=== PATIENT | male | born 1950 | race Caucasian/White ===

== ENCOUNTER → 2016-04-21 | Outpatient (CLI) | payer MEDICARE, BC, OTHER ==
[~2016-04-21] MED LIST: ACETAMINOPHEN PO; ACETAMINOPHEN325 MG PO; ALBUTEROL 0.5ML INH; ALBUTEROL20 ml INH; AMLODIPINE BESYL5 MG PO; ANTI ANXIETY; ATENOLOL50 MG PO; CALCIUM ACETAT667 M1 PO; CARDURA2 MG PO; CARVEDILOL PO; COREG3.125 MG PO; CYCLOBENZAPRINE5 MG PO; FENOFIBRATE134 MG PO; FLEXERIL10 MG; HYDROXYZINE PAM25 M1 PO; IRON325 ( 651 PO; LEVAQUIN PO; LO-DOSE ASPIRIN81 M1 PO; LORTAB 5-325 M1 EACH PO; LORTAB 5/500 TA1 TA1 PO; LOSARTAN POTASS50 MG PO; LOW DOSE ASPIRI81 M1 PO; MAPAP325 MG PO; METOPROLOL PO; NILSTAT PO; NORVASC10 MG PO; OMEPRAZOLE PO; ONDANSETRON HCL4 M1 PO; OXYCODONE-APAP1 EACH PO; PHENERGAN25 M1 PO; PRILOSEC2.5 MG; PRILOSEC20 M1 PO; PROTONIX; PROVENTIL INH0.5 ML INH; RENAL TAB PO; RENAL VITAMIN0.8 MG PO; SERTRALINE HCL50 MG PO; SODIUM BICARBO650 MG PO; STOOL SOFTNER; VICODIN 5-3001 EACH; VISTARIL; ZEMPLAR1 MCG PO; ZOLOFT; ZOLOFT50 MG PO; ZYLOPRIM100 MG PO
--- NOTE | ~2016-04-21 | XA203 ---
[facility] Service of [facility] RADIOLOGY TEXT RESULTS PATIENT: DARIEN AHUJA LOCATION: [facility] #: [id number] : 54 UNIT #: [id number] AGE: [address]: Ania Johnson SEX: M ORDER DR: [id number] [facility] [address] [place], [place] [address] [id number] O MR#: [id number] [facility] #: [id number] NAME: DARIEN AHUJA : 1950 SEX: M STUDY DATE/TIME: 04/21/2016 13:24 UNIT: [facility] ROOM: STUDY DESCRIPTION: XA Thoracentesis Attending Physician: Ania Johnson A.P.R.N. Referring Physician: Ania Johnson A.P.R.N. Ordering Physician: Ania Johnson A.P.R.N. Primary Care Physician: Jostete Fletcher Aprn MEDICAL IMAGING REPORT This report is preliminary unless electronic signature is present EXAM Ultrasound-guided thoracentesis. DATE OF EXAM 04/21/2016 HISTORY Recurrent right pleural effusion. TECHNIQUE The procedure was explained to the patient including risks, benefits and complications. An informed consent was obtained and a formal time out procedure was utilized. Using sterile technique and following local anesthesia with 1% Xylocaine, a sheath needle was placed into the pleural fluid collection with ultrasound guidance. Permanent ultrasound images were recorded. Some of the fluid was sent for laboratory analysis as requested by the ordering service. A total of 2 L of fluid was aspirated. The patient tolerated the procedure well. The chest x-ray will be obtained following the thoracentesis to evaluate for pneumothorax with results reported separately. IMPRESSION Technically successful ultrasound-guided right thoracentesis with 2 L of fluid obtained. Dictated by... Cole Barillas M.D. THIS IS AN ELECTRONICALLY VERIFIED REPORT Cole Barillas M.D. at 04/22/2016 4:42 PM [facility] of [facility] RADIOLOGY TEXT RESULTS PATIENT: DARIEN AHUJA LOCATION: [facility] #: [id number] : 54 UNIT #: [id number] AGE: [address]: Ania Johnson SEX: M ORDER DR: Yoly TD: 04/21/2016 16:54 JOB #: [id number] MEDICAL IMAGING REPORT COPY
--- NOTE | ~2016-04-21 | CR71 ---
[facility] A Service of [facility] RADIOLOGY TEXT RESULTS PATIENT: DARIEN AHUJA LOCATION: [facility] : 54 UNIT #: [id number] AGE: [address]: Ania Johnson SEX: M ORDER DR: [id number] [facility] [address] [place], [place] [address] [id number] O MR#: [id number] Acc #: [id number] NAME: DARIEN AHUJA. : 1950 SEX: M STUDY DATE/TIME: 04/21/2016 13:09 UNIT: [facility] ROOM: STUDY DESCRIPTION: CR Chest Single View Attending Physician: Ania Johnson A.P.R.N. Referring Physician: Ania Johnson A.P.R.N. Ordering Physician: Cole Barillas M.D. Primary Care Physician: Josette Fletcher Aprn MEDICAL IMAGING REPORT This report is preliminary unless electronic signature is present EXAM AP chest HISTORY Post thoracentesis. TECHNIQUE A single AP view of the chest was obtained and compared with 07/07/2012. FINDINGS Cardiomegaly is again seen. There is a trace remaining pleural effusion on the right in the minor fissure. There is no evidence of pneumothorax. The left lung is clear. Vascular markings are normal. IMPRESSION Satisfactory chest following thoracentesis. Dictated by... Cole Barillas M.D. THIS IS AN ELECTRONICALLY VERIFIED REPORT Cole Barillas M.D. at 04/21/2016 4:31 PM DU/owen TD: 04/21/2016 13:56 JOB #: [id number] MEDICAL IMAGING REPORT COPY
[2016-04-21 14:27] LABS: BF TOTAL NUCLEATED CELL COUNT 103 CMM (0-100); BODY FLUID APPEARANCE CLEAR; BODY FLUID SOURCE PLEURAL
[2016-04-21 14:28] LABS: BODY FLUID RBC <10000 CMM
[2016-04-21 15:02] LABS: PROTEIN, BODY FLUID 2.2 gm/dL
== END | disposition home or self-care (01) ==
LOC: CIVR 12:09
PROVIDERS: Registered Nurse
PROC: 0W993ZZ Drainage of Right Pleural Cavity, Percutaneous Approach (ICD-10-PCS; principal; 2016-04-21)
DX: J90 Pleural effusion, not elsewhere classified (principal); R06.02 Shortness of breath; N18.5 Chronic kidney disease, stage 5; D63.1 Anemia in chronic kidney disease; Z79.899 Other long term (current) drug therapy; I13.2 Hypertensive heart and chronic kidney disease with heart failure and with stage 5 chronic kidney disease, or end stage renal disease; I50.9 Heart failure, unspecified; J44.9 Chronic obstructive pulmonary disease, unspecified; Z79.82 Long term (current) use of aspirin; Z79.891 Long term (current) use of opiate analgesic; Z82.49 Family history of ischemic heart disease and other diseases of the circulatory system; Z83.3 Family history of diabetes mellitus
CPT/HCPCS: 71010; 82150; 82945; 83615; 83986; 84157; 87070; 87205; 88108; 88305; 89051

== ENCOUNTER → 2016-06-04 | Outpatient (CLI) | payer MEDICARE, BC, OTHER ==
--- NOTE | ~2016-06-04 | CR71 ---
[facility] A Service of [facility] RADIOLOGY TEXT RESULTS PATIENT: DARIEN AHUJA [facility] : 54 UNIT #: [id number] AGE: [address]: Tootie Samayoa SEX: M ORDER DR: [id number] [facility] [address] [place], [place] [address] [id number] O MR#: [id number] Acc #: [id number] NAME: DARIEN AHUJA : 1950 SEX: M STUDY DATE/TIME: 06/04/2016 11:40 [facility] ROOM: STUDY DESCRIPTION: CR Chest Single View Attending Physician: Tootie Samayoa A.P.R.N. Referring Physician: Tootie Samayoa A.P.R.N. Ordering Physician: Sejal Russo M.D. Primary Care Physician: Josette Fletcher Aprn MEDICAL IMAGING REPORT This report is preliminary unless electronic signature is present EXAM Single view of the chest dated 06/04/2016 at 11:40 hours COMPARISON Single view chest dated 04/21/2016 at 13:09 hours. HISTORY Asthma, post thoracentesis today. History of pain and cough. FINDINGS Frontal view of the chest was obtained. There is mild obliteration of the right lateral CP angle suggestive of mild right sided pleural effusion. Associated mild right lung base atelectasis is probably present. No obvious pneumothorax on the right. Borderline size to mild cardiomegaly. Bones do not demonstrate any significant abnormality. Dictated by... Deena Abel M.D. THIS IS AN ELECTRONICALLY VERIFIED REPORT Deena Abel M.D. at 06/05/2016 2:57 PM CPR/rnr TD: 06/04/2016 12:37 JOB #: [id number] MEDICAL IMAGING REPORT Page 1 of 1 COPY
--- NOTE | ~2016-06-04 | XA203 ---
[facility] A Service of [facility] RADIOLOGY TEXT RESULTS PATIENT: DARIEN AHUJA LOCATION: [facility] : 54 UNIT #: [id number] AGE: [address]: Tootie Samayoa SEX: M ORDER DR: [id number] [facility] [address] [place], [place] [address] [id number] O MR#: [id number] Acc #: [id number] NAME: DARIEN AHUJA : 1950 SEX: M STUDY DATE/TIME: 06/04/2016 11:11 UNIT: [facility] ROOM: STUDY DESCRIPTION: XA Thoracentesis Attending Physician: Tootie Samayoa A.P.R.N. Referring Physician: Tootie Samayoa A.P.R.N. Ordering Physician: Tootie Samayoa A.P.R.N. Primary Care Physician: Josette Fletcher Aprn MEDICAL IMAGING REPORT This report is preliminary unless electronic signature is present EXAM Ultrasound-guided thoracentesis. INDICATIONS Right pleural effusion.. PROCEDURE The risk, benefits, and alternatives for the procedure were explained to the patient and signed, informed consent was obtained. Patient was seated in the upright position. Ultrasound of the right hemithorax was performed which demonstrated large right pleural effusion, this image was permanently saved. Overlying skin was marked, patient was prepped and draped usual sterile fashion. Time-out was performed as protocol. Skin and subcutaneous tissues were anesthetized with buffered lidocaine and Yueh catheter was advanced into the fluid with aspiration of serous material. Catheter was hooked to suction tubing and there was evacuation of a total 2 L of serous material. The catheter was then removed and manual pressure was applied until hemostasis was obtained. The patient tolerated the procedure well. There were no immediate complications. IMPRESSION Technically successful ultrasound-guided paracentesis with evacuation of 2 L of serous material. Ultrasound was used during the procedure. Permanent images were saved. Dictated by... Sejal Russo M.D. THIS IS AN ELECTRONICALLY VERIFIED REPORT Sejal Russo M.D. at 06/06/2016 2:05 PM AFF/dj TD: 06/05/2016 10:28 [facility] A Service of [facility] RADIOLOGY TEXT RESULTS PATIENT: DARIEN AHUJA LOCATION: [facility] : 54 UNIT #: [id number] AGE: [address]: Tootie Samayoa SEX: M ORDER DR: JAVIER #: [id number] MEDICAL IMAGING REPORT Page 1 of 1 COPY
[2016-06-04 10:46] LABS: HEMATOCRIT 32.3 % (38.0-50.0); HEMOGLOBIN 10.7 gm/dL (13.0-16.0); MEAN CELL VOLUME 99.2 FL (83-96); MEAN CORPUSCULAR HEMOGLOBIN 32.9 PG (28-34); MEAN CORPUSCULAR HGB CONC 33.2 g/dL (30-36); MEAN PLATELET VOLUME 7.9 FL (6.5-11.5); RED BLOOD COUNT 3.25 X10e (3.90-5.60); RED CELL DISTRIBUTION WIDTH 15.1 % (11.0-15.5); WHITE BLOOD COUNT 4.1 X10e3 (4.0-10.5)
[2016-06-04 11:02] LABS: INR 1.1; PARTIAL THROMBOPLASTIN TIME 28.5 SECONDS (23.5-31.3); PROTHROMBIN TIME (PATIENT) 11.9 SECONDS (9.6-11.5)
[2016-06-04 13:33] LABS: PROTEIN, BODY FLUID 2.6 gm/dL
[2016-06-04 19:45] LABS: BF TOTAL NUCLEATED CELL COUNT 127 CMM (0-100); BODY FLUID APPEARANCE CLEAR; BODY FLUID RBC <10000 CMM; BODY FLUID SOURCE PLEURAL
== END | disposition home or self-care (01) ==
LOC: CIVR 10:06
PROVIDERS: Nurse Practitioner Adult Health
DX: J90 Pleural effusion, not elsewhere classified (principal); I51.7 Cardiomegaly; I13.2 Hypertensive heart and chronic kidney disease with heart failure and with stage 5 chronic kidney disease, or end stage renal disease; I50.9 Heart failure, unspecified; N18.5 Chronic kidney disease, stage 5; Z99.2 Dependence on renal dialysis; D63.1 Anemia in chronic kidney disease; J44.9 Chronic obstructive pulmonary disease, unspecified; Z79.899 Other long term (current) drug therapy; Z79.82 Long term (current) use of aspirin; Z82.49 Family history of ischemic heart disease and other diseases of the circulatory system; Z83.3 Family history of diabetes mellitus
CPT/HCPCS: 36415; 71010; 82150; 82945; 82947; 83615; 83986; 84155; 84157; 85027; 85610; 85730; 87070; 87116; 87205; 87206; 88108; 88305; 89051

== ENCOUNTER → 2016-07-30 | Outpatient (CLI) | payer MEDICARE, BC, OTHER ==
--- NOTE | ~2016-07-30 | ST ---
Unit #: [id number] #: [id number] Patient: DARIEN AHUJA [id number] [address] [address] [id number] O MR#: [id number] NAME: DARIEN AHUJA : 1950 SEX: M STUDY DATE/TIME: 07/30/2016 UNIT: [facility] ROOM: STUDY DESCRIPTION: Cardiac stress test. Attending Physician: Juli Shen M.D. Referring Physician: Juli Shen M.D. Primary Care Physician: Josette Fletcher Aprn CARDIOLOGY REPORT EXAM Cardiac stress test. REASON FOR STUDY Preoperative clearance for lung surgery. PROCEDURE Baseline EKG shows sinus rhythm with IVC and T wave inversion in the inferolateral leads. A total of 0.4 mg of Lexiscan was injected per protocol, followed by Cardiolite. The patient's symptoms were nausea. There were no ST-T wave changes or arrhythmias. The test was stopped due to protocol completion. IMPRESSION 1. There were no ST-T wave changes during the test. 2. The patient had nausea that resolved in recovery. 3. No arrhythmias. 4. Please correlate with Cardiolite imaging. Dictated by... Ely Teixeira A.P.R.N. AM/jose f TD: 07/30/2016 10:31 JOB #: [id number] CARDIOLOGY REPORT Page 1 of 1 X Ely Teixeira APRN CARDIOLOGY REPORT
--- NOTE | ~2016-07-30 | TH ---
Unit #: [id number] #: [id number] Patient: DARIEN AHUJA [id number] [address] [address] [id number] O MR#: [id number] NAME: DARIEN AHUJA : 1950 SEX: M STUDY DATE/TIME: 07/30/2016 UNIT: [facility] ROOM: STUDY DESCRIPTION: Attending Physician: Juli Shen M.D. Referring Physician: Juli Shen M.D. Primary Care Physician: Josette Fletcher Aprn CARDIOLOGY REPORT EXAM Lexiscan Cardiolite stress test, nuclear portion. PROCEDURE Using technetium 99m labeled Cardiolite, rest and stress SPECT images were obtained. Multiple SPECT images were obtained in various views including horizontal and vertical long axis and short axis views of the left ventricle. Images were obtained by gated SPECT method. The patient was administered 11.33 mCi of Cardiolite at rest. The patient was administered 33.1 mCi of Cardiolite after Lexiscan infusion was completed. On the stress images, there is normal perfusion noted. The rest images show decreased isotope activity inferiorly consistent with soft tissue artifact. Comparing rest and stress images, there is no stress-induced ischemia noted. The left ventricular ejection fraction is calculated to be 38%. There is global hypokinesis seen. The left ventricular cavity is moderate to severely dilated both at rest and post stress. CONCLUSION 1. No stress-induced ischemia noted. 2. The left ventricular ejection fraction is calculated to be 38%. 3. There is moderate global hypokinesis seen. 4. The left ventricular cavity is sbbvpgcm-je-ndqnikcm dilated both at rest and post stress. 5. Suspicion for moderate nonischemic dilated cardiomyopathy. Dictated by... Marina Rubin TD: 07/30/2016 12:12 JOB #: [id number] Unit #: [id number] #: [id number] Patient: DARIEN AHUJA CARDIOLOGY REPORT Page 1 of 1 X Juli Shen MD <ELECTRONICALLY SIGNED> 09/12/16 1429 CARDIOLOGY REPORT
== END | disposition home or self-care (01) ==
LOC: CNUC 07:31
DX: Z01.810 Encounter for preprocedural cardiovascular examination (principal); I51.7 Cardiomegaly
CPT/HCPCS: 78452; 93017; A9500; J2785

== ENCOUNTER 2016-08-17 12:16 | Emergency (ER) | payer MEDICARE, OTHER, BC ==
--- NOTE | ~2016-08-17 | CT4 ---
[facility] A Service of [facility] RADIOLOGY TEXT RESULTS PATIENT: DARIEN AHUJA LOCATION: SED : 54 UNIT #: [id number] AGE: [address]: Helga To MD SEX: M ORDER DR: [id number] [address] [address] [id number] E MR#: [id number] Acc #: [id number] NAME: DARIEN AHUJA : 1950 SEX: M STUDY DATE/TIME: 08/17/2016 13:38 UNIT: [facility] ROOM: STUDY DESCRIPTION: CT Abd and Pelv Wo Cont Attending Physician: Helga To M.D. Ordering Physician: Helga To M.D. Primary Care Physician: Josette Fletcher Aprn MEDICAL IMAGING REPORT This report is preliminary unless electronic signature is present. EXAM CT abdomen and pelvis without contrast Date: 08/17/2016 HISTORY Right flank pain for 3 days, on dialysis. Dysuria. COMPARISON CT abdomen and pelvis without contrast 12/09/2015. TECHNIQUE This CT exam was performed with one or more of the following radiation dose reduction techniques: automatic exposure control, adjustment of mA and/or kV according to patient size, and iterative reconstruction. PROCEDURE 3 mm noncontrast axial images through the abdomen and pelvis. Enteric contrast was not administered. Sagittal and coronal reformed images were obtained. FINDINGS Moderate sized right basilar pleural effusion is demonstrated with probable passive right lower lobe atelectasis. There is a small pericardial effusion measuring about 8 mm thickness. Dense coronary calcifications are present, there is a moderate sized esophageal hiatal hernia. The liver, gallbladder, spleen, pancreas, adrenals are normal. There is severe bilateral renal atrophy and cortical thinning with tiny low-density lesions scattered throughout both kidneys which are technically too small to characterize, but statistically favored to represent cysts. A 7 mm [facility] A Service of [facility] RADIOLOGY TEXT RESULTS PATIENT: DARIEN AHUJA LOCATION: [facility] : 54 UNIT #: [id number] AGE: [address]: Helga To MD SEX: M ORDER DR: nonobstructing stone within the right lower renal pole is unchanged from prior exam. No ureteral stone, hydronephrosis or hydroureter or perinephric inflammation is seen. Limited evaluation bowel due to lack of enteric contrast but no focal bowel inflammation is identified. Pelvis: Mild sigmoid diverticulosis without acute diverticulitis. Urinary bladder, prostate and rectum are normal. No pelvic adenopathy or free fluid is seen. No acute osseous abnormalities are identified. IMPRESSION 1. No acute findings within the abdomen or pelvis 2. A 7 mm nonobstructing right renal stone. No ureteral calculus, hydronephrosis, hydroureter or perinephric inflammation is seen. 3. Marked bilateral renal atrophy with low density bilateral renal l lesions such as but favored to represent cysts. 4. Sparse uncomplicated colonic diverticulosis. 5. Moderate sized right pleural effusion, increased since the 12/09/2015 examination with probable passive right basilar atelectasis. 6. Small pericardial effusion. 7. Dense coronary artery calcifications. 8. Moderate esophageal hiatal hernia. Dictated by... Esha Hand M.D. THIS IS AN ELECTRONICALLY VERIFIED REPORT Esha Hand M.D. at 08/19/2016 2:17 PM CRISTIAN/amelie TD: 08/17/2016 21:23 JOB #: [id number] MEDICAL IMAGING REPORT Page 1 of 1
[~2016-08-17 12:16] MED LIST changes: -ACETAMINOPHEN325 MG PO; -ALBUTEROL 0.5ML INH; -ALBUTEROL20 ml INH; -AMLODIPINE BESYL5 MG PO; -COREG3.125 MG PO; -CYCLOBENZAPRINE5 MG PO; -FLEXERIL10 MG; -HYDROXYZINE PAM25 M1 PO; -LO-DOSE ASPIRIN81 M1 PO; -LORTAB 5-325 M1 EACH PO; -LOSARTAN POTASS50 MG PO; -MAPAP325 MG PO; -NILSTAT PO; -ONDANSETRON HCL4 M1 PO; -OXYCODONE-APAP1 EACH PO; -PROTONIX; -PROVENTIL INH0.5 ML INH; -RENAL VITAMIN0.8 MG PO; -SERTRALINE HCL50 MG PO; -VICODIN 5-3001 EACH; -VISTARIL; -ZOLOFT
[2016-08-17] MEDS ORDERED: FLEXERIL10 MG (12:23)
[2016-08-17] MEDS ORDERED: VICODIN 5-3001 EACH (12:23)
[2016-08-17] MEDS ORDERED: PROTONIX (12:26)
[2016-08-17] MEDS ORDERED: VISTARIL (12:26)
[2016-08-17] MEDS ORDERED: ZOLOFT (12:26)
[2016-08-17 12:56] LABS: URINE APPEARANCE HAZY; URINE BILIRUBIN NEG (NEG); URINE BLOOD 3+ (NEG); URINE COLOR YELLOW; URINE GLUCOSE NEG (NORM); URINE KETONE NEG (NEG); URINE LEUKOCYTE ESTERASE 2+ (NEG); URINE NITRATE NEG (NEG); URINE PH 7.5 (5-8); URINE PROTEIN 2+ (NEG); URINE UROBILINOGEN 0.2 MG/DL (NORM)
[2016-08-17 12:57] LABS: MICRO INDICATED? YES; URINE SOURCE CLEAN CATCH
[2016-08-17 13:02] LABS: CULTURE INDICATED? YES; URINE BACTERIA 1+ (NEG); URINE RBC 25-50 /[HPF] (0-2); URINE WBC 50-100 /[HPF] (0-5)
[2016-08-17 13:03] LABS: URINE GRANULAR CAST 0-2 /[HPF]; URINE HYALINE CAST 0-2 /[HPF]; URINE MUCUS PRESENT; URINE SQUAMOUS EPITHELIAL CELL OCCAS /[HPF]
[2016-08-17 13:48] LABS: BASOPHIL% 1.2 % (0-2.5); EOSINOPHIL# 0.2 X10e3 (0-0.7); EOSINOPHIL% 4.5 % (0.0-7.0); HEMATOCRIT 27.3 % (38.0-50.0); HEMOGLOBIN 9.4 gm/dL (13.0-16.0); LYMPHOCYTE# 0.9 X10e3 (1.0-3.5); LYMPHOCYTE% 26.3 % (17.0-45.0); MEAN CELL VOLUME 96.5 FL (83-96); MEAN CORPUSCULAR HEMOGLOBIN 33.4 PG (28-34); MEAN CORPUSCULAR HGB CONC 34.6 g/dL (30-36); MEAN PLATELET VOLUME 7.9 FL (6.5-11.5); MONOCYTE# 0.3 X10e3 (0-1.0); PLATELET COUNT 135 X10e3 (140-420); RED BLOOD COUNT 2.83 X10e (3.90-5.60); RED CELL DISTRIBUTION WIDTH 13.9 % (11.0-15.5); WHITE BLOOD COUNT 3.5 X10e3 (4.0-10.5)
[2016-08-17 13:49] LABS: DIFF IND NO
[2016-08-17 14:03] LABS: INR 1.2; PROTHROMBIN TIME (PATIENT) 13.2 SECONDS (9.5-12.4)
[2016-08-17 14:08] LABS: ALBUMIN SERUM 3.4 g/dL (3.5-5.0); BILIRUBIN, DIRECT 0.1 mg/dL (0.0-0.2); BILIRUBIN,INDIRECT 0.3 mg/dL (0.0-0.9); BILIRUBIN,TOTAL 0.4 mg/dL (0.2-2.0); BUN/CREATININE RATIO 5.42; CALCIUM SERUM 8.7 mg/dL (8.4-10.2); CREATININE SERUM 3.5 mg/dL (0.6-1.4); GLOM FILT RATE Estimated 17.4 mL/min (>60); MAGNESIUM 2.2 mg/dL (1.6-3.0); POTASSIUM 4.5 mmol/L (3.5-5.1); PROTEIN TOTAL SERUM 6.4 g/dL (6.0-8.3)
[2016-08-17 14:11] LABS: PARTIAL THROMBOPLASTIN TIME 25.4 SECONDS (25.6-38.1)
[2016-08-20] MEDS ORDERED: COREG3.125 MG PO (11:15)
[2016-08-20] MEDS ORDERED: LO-DOSE ASPIRIN81 M1 PO (11:16)
[2016-08-20] MEDS ORDERED: RENAL VITAMIN0.8 MG PO (11:16)
[2016-08-20] MEDS ORDERED: AMLODIPINE BESYL5 MG PO (11:16)
[2016-08-20] MEDS ORDERED: LOSARTAN POTASS50 MG PO (11:18)
[2016-08-20] MEDS ORDERED: SERTRALINE HCL50 MG PO (11:18)
[2016-08-20] MEDS ORDERED: ONDANSETRON HCL4 M1 PO (11:19)
[2016-08-20] MEDS ORDERED: CYCLOBENZAPRINE5 MG PO (11:20)
[2016-08-20] MEDS ORDERED: HYDROXYZINE PAM25 M1 PO (11:20)
[2016-08-20] MEDS ORDERED: MAPAP325 MG PO (11:21)
[2016-08-20] MEDS ORDERED: ALBUTEROL 0.5ML INH (12:13)
[2016-08-20] MEDS ORDERED: ALBUTEROL20 ml INH (12:13)
== END 2016-08-17 15:36 | disposition home or self-care (01) ==
LOC: SED 12:16
PROVIDERS: Emergency Medicine
DX: N39.0 Urinary tract infection, site not specified (principal); K21.9 Gastro-esophageal reflux disease without esophagitis; I10 Essential (primary) hypertension; E78.5 Hyperlipidemia, unspecified; J44.9 Chronic obstructive pulmonary disease, unspecified; F32.9 Major depressive disorder, single episode, unspecified; Z87.442 Personal history of urinary calculi
CPT/HCPCS: 36415; 74176; 80048; 80076; 81003; 83605; 83735; 85025; 85610; 85730; 87086; 96374; 99284; J0696

== ENCOUNTER → 2016-08-20 | Outpatient (CLI) | payer MEDICARE, BC, OTHER ==
[~2016-08-20] MED LIST changes: +ACETAMINOPHEN325 MG PO; +ALBUTEROL 0.5ML INH; +ALBUTEROL20 ml INH; +AMLODIPINE BESYL5 MG PO; +COREG3.125 MG PO; +CYCLOBENZAPRINE5 MG PO; +FLEXERIL10 MG; +HYDROXYZINE PAM25 M1 PO; +LO-DOSE ASPIRIN81 M1 PO; +LORTAB 5-325 M1 EACH PO; +LOSARTAN POTASS50 MG PO; +MAPAP325 MG PO; +NILSTAT PO; +ONDANSETRON HCL4 M1 PO; +OXYCODONE-APAP1 EACH PO; +PROTONIX; +PROVENTIL INH0.5 ML INH; +RENAL VITAMIN0.8 MG PO; +SERTRALINE HCL50 MG PO; +VICODIN 5-3001 EACH; +VISTARIL; +ZOLOFT
--- NOTE | ~2016-08-20 | CR63 ---
[facility] A Service of [facility] RADIOLOGY TEXT RESULTS PATIENT: DARIEN AHUJA LOCATION: [facility] : 54 UNIT #: [id number] AGE: [address]: Jamarcus Nolasco MD SEX: M ORDER DR: [id number] [facility] [address] [place], [place] [address] [id number] O MR#: [id number] Acc #: [id number] NAME: DARIEN AHUJA : 1950 SEX: M STUDY DATE/TIME: 08/20/2016 12:22 UNIT: [facility] ROOM: STUDY DESCRIPTION: CR Chest 2 View Attending Physician: Jamarcus Nolasco M.D. Referring Physician: Jamarcus Nolasco M.D. Ordering Physician: Jamarcus Nolasco M.D. Primary Care Physician: Josette Fletcher Aprn MEDICAL IMAGING REPORT This report is preliminary unless electronic signature is present EXAM PA lateral chest DATE: 08/20/2016 HISTORY 66-year-old male with pleural effusion. Preop evaluation for right lung surgery, pleurodesis. Symptoms have been present for 1 week. COMPARISON AP portable chest radiograph 06/04/2016, CT abdomen and pelvis 08/17/2016. FINDINGS Small right pleural effusion with probable right basilar atelectasis, quite similar to the 06/04/2016 examination. Left lung remains clear. Stable mild cardiac enlargement. Suspected small esophageal hiatal hernia. Degenerative endplate spurring in the thoracic spine. IMPRESSION 1. Persistent small right pleural effusion with right basilar atelectasis, but stable cardiac enlargement. 2. Small esophageal hiatal hernia. 3. No significant change from 06/04/2016. Dictated by... Esha Hand M.D. THIS IS AN ELECTRONICALLY VERIFIED REPORT Esha Hand M.D. at 08/21/2016 9:37 PM CRISTIAN/nathaly [facility] A Service of [facility] RADIOLOGY TEXT RESULTS PATIENT: DARIEN AHUJA LOCATION: [facility] : 54 UNIT #: [id number] AGE: [address]: Jamarcus Nolasco MD SEX: M ORDER DR: TD: 08/21/2016 03:43 JOB #: [id number] MEDICAL IMAGING REPORT Page 1 of 1 COPY
[2016-08-20 11:19] LABS: HEMATOCRIT 29.4 % (38.0-50.0); HEMOGLOBIN 9.6 gm/dL (13.0-16.0); MEAN CELL VOLUME 98.3 FL (83-96); MEAN CORPUSCULAR HEMOGLOBIN 32.2 PG (28-34); MEAN CORPUSCULAR HGB CONC 32.7 g/dL (30-36); MEAN PLATELET VOLUME 8.3 FL (6.5-11.5); RED CELL DISTRIBUTION WIDTH 14.2 % (11.0-15.5); URINE APPEARANCE CLOUDY; URINE BILIRUBIN NEG (NEG); URINE BLOOD 2+ (NEG); URINE COLOR YELLOW; URINE GLUCOSE NEG (NEG); URINE KETONE NEG (NEG); URINE LEUKOCYTE ESTERASE 3+ (NEG); URINE NITRATE NEG (NEG); URINE PH 8.5 (5-8); URINE PROTEIN 3+ (NEG); URINE SPECIFIC GRAVITY 1.014 (1.003-1.035); URINE UROBILINOGEN 0.2 MG/DL (NEG); WHITE BLOOD COUNT 3.6 X10e3 (4.0-10.5)
[2016-08-20 11:23] LABS: URBCS1 AUWI 50-100 /[HPF] (0-2); URINE BACTERIA AUWI NEG (NEGATIVE); URINE SQUAMOUS EPITHELIAL CELL NONE SEEN /[HPF]; UWBCS1 AUWI 100-200 (0-5)
[2016-08-20 11:34] LABS: INR 1.1; PROTHROMBIN TIME (PATIENT) 12.2 SECONDS (10.0-11.7)
[2016-08-20 11:38] LABS: URINE SOURCE CLEAN CATCH
[2016-08-20 11:39] LABS: URINE MUCUS PRESENT
[2016-08-20 11:57] LABS: ALBUMIN SERUM 3.6 g/dL (3.5-5.0); BILIRUBIN,TOTAL 0.5 mg/dL (0.2-2.0); BUN/CREATININE RATIO 5.09; CALCIUM SERUM 9.1 mg/dL (8.4-10.2); CREATININE SERUM 5.1 mg/dL (0.6-1.4); PROTEIN TOTAL SERUM 6.5 g/dL (6.0-8.3)
== END | disposition home or self-care (01) ==
LOC: CAMB 10:27
PROVIDERS: Surgery
DX: Z01.818 Encounter for other preprocedural examination (principal); J90 Pleural effusion, not elsewhere classified; J98.11 Atelectasis; I51.7 Cardiomegaly; K44.9 Diaphragmatic hernia without obstruction or gangrene
CPT/HCPCS: 36415; 71020; 80053; 81003; 85027; 85610; 85730; 86850; 86900; 86901

== ENCOUNTER 2016-08-27 06:37 | Inpatient (IN) | payer MEDICARE, BC, OTHER ==
--- NOTE | ~2016-08-27 | CR63 ---
[facility] A Service of [facility] & [facility] RADIOLOGY TEXT RESULTS PATIENT: DARIEN AHUJA LOCATION: [facility] [id number] : 54 UNIT #: [id number] AGE: [address]: Jamarcus Nolasco MD SEX: M ORDER DR: [id number] [facility] [address] [place], [place] [address] [id number] I MR#: [id number] Acc #: [id number] NAME: DARIEN AHUJA : 1950 SEX: M STUDY DATE/TIME: 08/31/2016 21:25 UNIT: [facility] ROOM: [facility] STUDY DESCRIPTION: CR Chest 2 View Attending Physician: Jamarcus Nolasco M.D. Ordering Physician: Jamarcus Nolasco M.D. Primary Care Physician: Josette Fletcher Aprn MEDICAL IMAGING REPORT This report is preliminary unless electronic signature is present EXAM Two-view chest INDICATIONS Chest tube removal. Shortness of air. COPD. FINDINGS PA and lateral views of the chest compared to 08/31/2016. The right-sided chest tube has been removed. No pneumothorax. There is background COPD. Heart and mediastinal contours are stable. IMPRESSION No pneumothorax status post chest tube removal. Dictated by... Jones Jackson M.D. THIS IS AN ELECTRONICALLY VERIFIED REPORT Jones Jackson M.D. at 09/01/2016 3:08 PM MAHIN/amelie TD: 09/01/2016 12:16 JOB #: [id number] MEDICAL IMAGING REPORT Page 1 of 1 COPY
--- NOTE | ~2016-08-27 | CR72 ---
[facility] A Service of [facility] RADIOLOGY TEXT RESULTS PATIENT: DARIEN AHUJA LOCATION: [facility] [id number] : 54 UNIT #: [id number] AGE: [address]: Jamarcus Nolasco MD SEX: M ORDER DR: [id number] [facility] [address] [place], [place] [address] [id number] I MR#: [id number] Acc #: [id number] NAME: DARIEN AHUJA : 1950 SEX: M STUDY DATE/TIME: 08/29/2016 5:30 UNIT: [facility] ROOM: [facility] STUDY DESCRIPTION: CR Chest Single View Portable Attending Physician: Jamarcus Nolasco M.D. Ordering Physician: Jamarcus Nolasco M.D. Primary Care Physician: Josette Fletcher Aprn MEDICAL IMAGING REPORT This report is preliminary unless electronic signature is present EXAM Chest x-ray, single view portable HISTORY Short of air. Chest tube Symptoms began 08/27/16 postoperative VAT. History of hypertension. COMMENT Single frontal portable view of the chest timed 5:30 a.m. 08/29/16 compared to 08/28/16. FINDINGS There are two right chest tubes. There is a small amount of right sided basilar atelectasis, and there is right hemithorax volume loss. This is probably improving on comparison to prior. I cannot exclude a right apical pneumothorax. No left sided pneumothorax. Patchy airspace disease at the left base is improving. Moderate cardiomediastinal silhouette enlargement redemonstrated. IMPRESSION Two right side chest tubes. Cannot exclude a tiny right apical pneumothorax. There is some improvement in aeration bilaterally since film from yesterday. Some atelectasis remains at lung bases. No change in mediastinal silhouette enlargement. No congestive failure. Dictated by... Erinn Bernstein M.D. THIS IS AN ELECTRONICALLY VERIFIED REPORT Erinn Bernstein M.D. at 08/30/2016 7:18 AM SAC/ea [facility] A Service of [facility] RADIOLOGY TEXT RESULTS PATIENT: DARIEN AHUJA LOCATION: [facility] [id number] : 54 UNIT #: [id number] AGE: [address]: Jamarcus Nolasco MD SEX: M ORDER DR: TD: 08/29/2016 16:43 JOB #: [id number] MEDICAL IMAGING REPORT Page 1 of 1 COPY
--- NOTE | ~2016-08-27 | OR ---
Unit #: [id number] #: [id number] Patient: DARIEN AHUJA [id number] [address] [address] [id number] I MR#: [id number] NAME: DARIEN AHUJA ROOM: [facility] Date of Procedure: 08/27/2016 Admission Date: 08/27/2016 Surgeon: Jamarcus Nolasco M.D. : 1950 Attending Physician: Jamarcus Nolasco M.D. Primary Care Physician: Josette Fletcher Aprn OPERATIVE REPORT PREOPERATIVE DIAGNOSES Recurrent right pleural effusion; end-stage renal disease. POSTOPERATIVE DIAGNOSES Recurrent right pleural effusion; end-stage renal disease. PROCEDURE PERFORMED Right video-assisted thoracoscopy with parietal pleurectomy and mechanical pleurodesis of the diaphragm. ANESTHESIA General. ESTIMATED BLOOD LOSS About 50 mL. DRAINS Two #28 chest tubes. COMPLICATIONS None. DESCRIPTION OF PROCEDURE The patient was taken to the operating room and placed on the operating room table in a supine position. After appropriate monitoring lines had been placed, general endotracheal anesthesia was then induced using a double-lumen endotracheal tube. Adequate positioning of this tube was ensured using the pediatric bronchoscope. The patient was placed on the operating room table in a left lateral decubitus position. A rolled sheet was placed beneath the left axillary area. The patient was secured in place on the operating room table using a hester bag as well as tape across the right hip. The right arm was supported anteriorly on an arm support. The right chest was prepped with ChloraPrep and draped in a sterile fashion. A small 1.5 cm skin incision was made in the mid axillary line at about the seventh intercostal space. The incision was carried down through the subcutaneous tissue and muscle and fascial layers using the Bovie. The chest was then entered at this level using a Josette clamp and a gloved finger inserted. A tonsil tip sucker was placed per the incision down into the posterior gutter and the fluid present in the pleural space was aspirated free. A total of about 1.4 L of familia colored fluid was removed. Some of the fluid was sent for cytology as well as some for cultures. A trocar introducer was inserted and the thoracoscope then Unit #: [id number] #: [id number] Patient: DARIEN AHUJA passed per this trocar introducer. There were a few adhesions present between the lung and chest wall. A small counter incision was made in the anterior axillary line over about the fifth intercostal space. This incision was carried down through the subcutaneous tissue and muscle and fascial layers using the Bovie. Examination of the pleural space showed some thickening of the parietal pleura as well as some inflammatory changes along the lower posterior gutter, but no obvious signs of carcinoma was seen. In view of this, it was elected to proceed with parietal pleurectomy and subsequent mechanical pleurodesis of the diaphragm rather than instilling talc. Dissection between the pleura and the chest wall was started at the anterior incision and then this was further dissected using a ringed lung clamp. Since the pleura was rather thickened, I was able to separate it from the chest wall fairly easily. Scissors were used to incise across the parietal pleura. The upper portion of the parietal pleura was then further dissected free from the chest wall and then removed using a Josette clamp to grasp and tear the parietal pleura. The inferior portion of the parietal pleura was dissected free down to the level of the diaphragm. It was then removed and portions of this parietal pleura were sent for frozen section as well as permanent sections and also for cultures. A small piece of Prolene mesh was attached to a ringed forceps and this was used to abrade the dome of the right diaphragm. Frozen section on the parietal pleura returned showing inflammatory changes, and some atypical cells, but no definitive carcinoma was seen. The chest was then irrigated with warm normal saline solution. Any clot that had formed during the process of the pleurectomy was aspirated free with a suction catheter. Two #28 chest tubes were inserted per these 2 incisions in the chest with one being placed superiorly to the apex of the chest and with the posterior chest tube being placed along the posterior gutter. The tubes were secured in place to the skin using 2-0 silk suture. They were then wired to a Pleur-evac. A cut 4x4 was placed around the chest tubes, and they were secured in place with tape. Estimated blood loss in the procedure was about 50 mL. Sponge and needle counts in the operation were correct. The patient tolerated the procedure well and left the operating room in satisfactory condition. Dictated byCarole Nolasco M.D. LIDIAB/elayne TD: 08/28/2016 07:53 JOB #: [id number] OPERATIVE REPORT Page 1 of 1 X Jamarcus Nolasco MD X PROCEDURE OPERATIVE NOTE
--- NOTE | ~2016-08-27 | CR72 ---
[facility] A Service of [facility] & [facility] RADIOLOGY TEXT RESULTS PATIENT: DARINE AHUJA LOCATION: [place] [address] : [birth year] UNIT #: [id number] AGE: [address]: Jamarcus Nolasco MD SEX: M ORDER DR: [id number] [facility] [address] [facility] [place], [place] [address] [id number] MR#: [id number] Acc #: [id number] NAME: DARIEN AHUJA : 1950 SEX: M STUDY DATE/TIME: 08/28/2016 5:47 UNIT: [facility] ROOM: [facility] STUDY DESCRIPTION: CR Chest Single View Portable Attending Physician: Jamarcus Nolasco M.D. Ordering Physician: Jamarcus Nolasco M.D. Primary Care Physician: Josette Fletcher Aprn MEDICAL IMAGING REPORT This report is preliminary unless electronic signature is present EXAM Portable chest 08/28 INDICATIONS Chest tube, COPD, shortness of air. Symptoms for 2 days. FINDINGS AP portable chest is compared with 08/27/2016. Two right chest tubes are present. No definitive pneumothorax on either side of the chest. Cardiomegaly is stable. There is continued atelectasis in both bases and there is some mild vascular congestion. Dictated by... Cole Morfin Jr., M.D. THIS IS AN ELECTRONICALLY VERIFIED REPORT Cole Morfin Jr., M.D. at 08/28/2016 4:09 PM EMELYN/enid TD: 08/28/2016 09:24 JOB #: [id number] MEDICAL IMAGING REPORT Page 1 of 1 COPY
--- NOTE | ~2016-08-27 | CR72 ---
[facility] A Service of [facility] RADIOLOGY TEXT RESULTS PATIENT: DARIEN AHUJA LOCATION: [facility] [id number] : [birth year] UNIT #: [id number] AGE: [address]: Jamarcus Nolasco MD SEX: M ORDER DR: [id number] [facility] [address] [facility]. [place], [place] [address] [id number] I MR#: [id number] Acc #: [id number] NAME: DARIEN AHUJA : 1950 SEX: M STUDY DATE/TIME: 08/30/2016 5:06 UNIT: [facility] ROOM: [facility] STUDY DESCRIPTION: CR Chest Single View Portable Attending Physician: Jamarcus Nolasco M.D. Ordering Physician: Alonso Vasquez M.D. Primary Care Physician: Josette Fletcher Aprn MEDICAL IMAGING REPORT This report is preliminary unless electronic signature is present EXAM Chest x-ray single view portable HISTORY Short of air for 3 days. Postop VAT on 08/27/2016 right side. History of hypertension, COPD, endstage renal disease. COMMENT Single frontal portable view of the chest timed 05:06 on 08/30/2016 compared to 08/29/2016. Two right side chest tubes noted. There is some volume loss right hemithorax. The patient is also rotated to the right. Moderate cardiac silhouette enlargement is noted probably not changed. Component of underlying chronic lung disease likely with some increased interstitial markings. This has not changed. No pneumothorax. IMPRESSION Two right sided chest tubes, right hemithorax volume loss. No definite pneumothorax. No change in cardiac silhouette enlargement and likely underlying chronic lung disease. Dictated by... Erinn Bernstein M.D. THIS IS AN ELECTRONICALLY VERIFIED REPORT Erinn Bernstein M.D. at 09/01/2016 8:38 AM BERNARDINO/hector [facility] A Service of [facility] RADIOLOGY TEXT RESULTS PATIENT: DARIEN AHUJA LOCATION: [facility] [id number] : [birth year] UNIT #: [id number] AGE: [address]: Jamarcus Nolasco MD SEX: M ORDER DR: TD: 08/31/2016 06:45 JOB #: [id number] MEDICAL IMAGING REPORT Page 1 of 1 COPY
--- NOTE | ~2016-08-27 | CR72 ---
[facility] A Service of [facility] RADIOLOGY TEXT RESULTS PATIENT: DARIEN AHUJA LOCATION: [facility] : 54 UNIT #: [id number] AGE: [address]: Jamarcus Nolasco MD SEX: M ORDER DR: [id number] [facility] [address] [facility]. [place], [place] [address] [id number] I MR#: [id number] Acc #: [id number] NAME: DARIEN AHUJA : 1950 SEX: M STUDY DATE/TIME: 08/27/2016 11:11 UNIT: [facility] ROOM: STUDY DESCRIPTION: CR Chest Single View Portable Attending Physician: Jamarcus Nolasco M.D. Ordering Physician: Jamarcus Nolasco M.D. Primary Care Physician: Josette Fletcher Aprn MEDICAL IMAGING REPORT This report is preliminary unless electronic signature is present EXAM Chest portable 08/27/2016 1111 hours CLINICAL HISTORY Shortness of air, status post VAT with chest tube placement today. History of hypertension and COPD. COMPARISON 08/20/2016. FINDINGS Single portable upright view demonstrates 2 right chest tubes. One enters laterally and more superiorly and extends towards the right lung apex. Second tube enters slightly more inferiorly and courses obliquely terminating over the right hilum. There is no acute pulmonary density. There is no pleural effusion or pneumothorax. IMPRESSION There are 2 right chest tubes present, 1 terminating at the apex and 1 terminating over the right hilum. The lungs are clear. There is no pleural effusion or pneumothorax. Dictated by... An Lucio M.D. THIS IS AN ELECTRONICALLY VERIFIED REPORT An Lucio M.D. at 08/27/2016 2:34 PM SAIRA/hector TD: 08/27/2016 12:58 JOB #: [id number] [facility] A Service of [facility] RADIOLOGY TEXT RESULTS PATIENT: DARIEN AHUJA LOCATION: [facility] : 54 UNIT #: [id number] AGE: [address]: Jamarcus Nolasco MD SEX: M ORDER DR: MEDICAL IMAGING REPORT Page 1 of 1 COPY
--- NOTE | ~2016-08-27 | DS ---
Unit #: [id number] #: [id number] Patient: DARIEN GANNON [id number] [address] [place], [place] [address] [id number] I MR#: [id number] NAME: DARIEN GANNON ROOM: 565 Age: 66 Sex: M Admission Date: 08/27/2016 : 1950 Discharge Date: 09/03/2016 Attending Physician: Jamarcus Nolasco M.D. Referring Physician: Josette Fletcher Aprn Primary Care Physician: Josette Fletcher Aprn DISCHARGE SUMMARY CONSULTING PHYSICIAN Dr. Eric Huston - Pulmonology. PROCEDURE Right video-assisted thoracoscopy with parietal pleurectomy and mechanical pleurodesis of the diaphragm on 08/27/16 with pathology revealing fibroconnective and fibroadipose tissue, vocal mesothelial lined, containing a focally prominent chronic inflammation with lymphoid infiltrate with final path pending. HISTORY OF PRESENT ILLNESS Mr. Gannon is a 66-year-old male who remains on hemodialysis, who presented to the hospital originally in 2016 at [place] with a right pleural effusion. He subsequently underwent thoracentesis three additional times and presented with Dr. Nolasco on June 25, 2016, for evaluation for possible surgical intervention. Following cardiac evaluation by Dr. Shen, he presented to [facility] on 08/27/16 and underwent right video-assisted thoracoscopy with parietal pleural biopsies and mechanical pleurodesis of the diaphragm. Postoperatively, he did well. He was cared for by Dr. Manuel Amor and underwent postoperative hemodialysis while admitted to the hospital. He was cared for by Dr. Eric Huston in regards to his pulmonary status. He was maintained in the ICU for three days and then moved to stepdown unit. His chest tubes were removed the day before discharge. On discharge, he was discharged home. PHYSICAL EXAMINATION ON DATE OF DISCHARGE Blood pressure was 158/60, heart rate was 78, respiratory rate 17. He was afebrile. His hemoglobin was 12.5, his hematocrit was 25.3 and WBCs were 3.5. Auscultation of his LUNGS found them to be clear. No rales, rhonchi or wheezes. CARDIOVASCULAR - S1, S2 without rub, without murmur. No S3 or 4 and no peripheral edema. His ABDOMEN was round, soft. Bowel sounds were positive, nontender. No pulsatile masses or hepatosplenomegaly. His incision lines were clean and dry. His chest tube sites were covered with Vaseline gauze and 4 x 4's. He was discharged on 09/03/16. He was discharged home on: 1. Folic acid, one tablet once a day. 2. Flexeril 5 mg, one tablet p.r.n. every eight hours. 3. Hydrocodone 5/325, one tablet q.4 hours p.r.n. for pain. 4. Aspirin 81 mg once a day. 5. Losartan 50 mg once a day. 6. Amlodipine 5 mg twice a day. 7. Carvedilol 3.125 mg, one twice a day. Unit #: [id number] #: [id number] Patient: DARIEN GANNON 8. Hydroxyzine 25 mg once a day. 9. Albuterol/Proventil inhaler, two puffs four times a day p.r.n. 10. Tylenol 325 mg, one by mouth every eight hours p.r.n. 11. Sertraline 50 mg, once every bedtime. 12. Zofran 4 mg, one three times a day p.r.n. nausea. 13. Nystatin swish and swallow, 5 mL three times per day. IMPRESSION 1. Status post right video-assisted thoracoscopy with parietal pleural biopsies and mechanical pleurodesis of the diaphragm on 08/27/16 with final path pending. 2. End stage renal disease requiring hemodialysis. PLAN Follow up in two weeks in the office with an outpatient chest x-ray. No lifting over ten pounds. No tub baths. May shower in three days. Dictated by... Jessica Whitt A.P.R.N. for Marina Barbosa/shaneka TD: 09/18/2016 11:46 JOB #: [id number] DISCHARGE SUMMARY Page 1 of 1 X Jessica Whitt APRN X DISCHARGE SUMMARY
--- NOTE | ~2016-08-27 | CO ---
Unit #: [id number] #: [id number] Patient: DARIEN GANNON [id number] [address] [address] [id number] I MR#: [id number] NAME: DARIEN GANNON ROOM: [facility] Age: 66 Sex: M Admission Date: 08/27/2016 : 1950 Attending Physician: Jamarcus Nolasco M.D. Primary Care Physician: Josette Fletcher Aprn CONSULTATION REPORT REASON FOR CONSULTATION Management of end-stage renal disease. HISTORY OF PRESENT ILLNESS Mr. Gannon is a 66-year-old gentleman well known to our service for end-stage renal disease maintained on hemodialysis. He is admitted at this time as a postoperative procedure following a video-assisted thoracoscopy. Mr. Gannon has been having recurrent right-sided pleural effusions, several of which have been drained in preceding months and a more definitive procedure was felt necessary. The cause of the effusions is unclear at this time. He is currently seen after his procedure. He currently reports that he is having some significant pain at the site of his surgical incisions. He has difficulty with deep inspirations because of the pain. Additionally, he has diffuse arthritis particularly in the knees which he feels is (1) by his limited mobility at this point in time. He has mild nausea following his procedure but reports he does not have shortness of breath. Prior to the procedure, he reported doing reasonably well with no acute medical issues. PAST MEDICAL HISTORY 1. End-stage renal disease as noted above. His renal failure has been attributed to hypertension. 2. Hyperlipidemia. 3. Asthma/COPD with probable obstructive sleep apnea. 4. Morbid obesity. 5. Hypertension. 6. Gout. 7. Gastroesophageal reflux disease. 8. Traumatic eye injury with multiple surgeries and a right maxillary tumor status post excision. FAMILY HISTORY Coronary artery disease affecting several of his siblings as well as mother. ALLERGIES None known. CURRENT MEDICATIONS 1. Coreg 3.125 mg daily. 2. Renal vitamin. 3. Baby aspirin. 4. Amlodipine 5 mg b.i.d. 5. Losartan 50 mg h.s. Unit #: [id number] #: [id number] Patient: DARIEN GANNON 6. Sertraline 50 mg h.s. 7. Zofran p.r.n. nausea. 8. Hydroxyzine 25 mg b.i.d. 9. Cyclobenzaprine 5 mg b.i.d. 10. Acetaminophen p.r.n. pain. REVIEW OF SYSTEMS Noncontributory except as above. PHYSICAL EXAMINATION GENERAL APPEARANCE: At time of evaluation, the patient was sitting up in a chair in intensive care. He had two chest tubes in his right chest. He appeared somewhat uncomfortable but was awake, alert and very appropriate. VITAL SIGNS: He was afebrile. Blood pressures are running approximately 155/60 with a pulse of 65 and a respiratory rate of 19. O2 sats were 100% on nasal cannula. HEENT: Head was normocephalic. Pupils were equal and reactive. Sclerae and conjunctivae were clear. NECK: Supple without adenopathy. There was no jugular venous distention. LUNGS: Clear to auscultation on the right. He had somewhat diminished breath sounds on the left. Inspirations were limited due to pain. HEART: Regular rate with a normal S1, S2. There appeared to be a 2/6 systolic ejection murmur heard over the base. ABDOMEN: Quiescent but soft and nontender. No masses or organomegaly were noted. GENITORECTAL: Exam was deferred. EXTREMITIES: No lower extremity edema. There was no cyanosis or clubbing. SKIN: No lesions. NEUROLOGIC: Grossly unremarkable. DIAGNOSTIC STUDIES LABORATORY: Serum potassium of 5.5 with a creatinine of 6.1 and a BUN of 38. His phosphorous is elevated also at 5.8. Other chemistries were essentially normal. His hemoglobin was 9.7 with a white count of 5.7 and a platelet count of 134,000. IMPRESSION 1. Status post VATS procedure. 2. Recurrent right pleural effusion, etiology unclear. 3. End-stage renal disease. The patient is due for hemodialysis today and his dialysis orders have been written. The patient is concerned he may not make it out of his house on Wednesday for his regular treatment because of the current level of pain he is experiencing, has requested that we dialyze him here on Wednesday prior to discharge. We will try to accommodate him if feasible. 4. Hypertension. His blood pressure is currently running a little bit on the high side but not undue given his level of pain. We will monitor this at the current time. Dictated by... Marina Andres/james TD: 08/28/2016 09:33 JOB #: [id number] Unit #: [id number] #: [id number] Patient: DARIEN GANNON CONSULTATION REPORT Page 1 of 1 X Manuel Amor Jr, MD X CONSULTATION REPORT
--- NOTE | ~2016-08-27 | CR72 ---
[facility] A Service of [facility] RADIOLOGY TEXT RESULTS PATIENT: DARIEN AHUJA LOCATION: [facility] [id number] : [birth year] UNIT #: [id number] AGE: [address]: Jamarcus Nolasco MD SEX: M ORDER DR: [id number] [place] [address] [place], [place] [address] [id number] I MR#: [id number] Acc #: [id number] NAME: DARIEN AHUJA : 1950 SEX: M STUDY DATE/TIME: 08/31/2016 5:00 UNIT: [facility] ROOM: [facility] STUDY DESCRIPTION: CR Chest Single View Portable Attending Physician: Jamarcus Nolasco M.D. Ordering Physician: Jamarcus Nolasco M.D. Primary Care Physician: Josette Fletcher Aprn MEDICAL IMAGING REPORT This report is preliminary unless electronic signature is present EXAM Portable chest HISTORY Follow-up right chest tube FINDINGS Portable view of the chest is compared with 08/30/2016. The right chest tube is stable. The heart is mildly enlarged. There are no definite infiltrates and there has been no change. Dictated by... Pepe Seals M.D. THIS IS AN ELECTRONICALLY VERIFIED REPORT Pepe Seals M.D. at 08/31/2016 1:36 PM Odell TD: 08/31/2016 13:21 JOB #: [id number] MEDICAL IMAGING REPORT Page 1 of 1 COPY
--- NOTE | ~2016-08-27 | CO ---
Unit #: [id number] #: [id number] Patient: DARIEN GANNON [id number] [address] [place], [place] [address] [id number] MR#: [id number] NAME: DARIEN GANNON ROOM: [facility] Age: 66 Sex: M Admission Date: 08/27/2016 : 1950 Attending Physician: Jamarcus Nolasco M.D. Primary Care Physician: Josette Fletcher Aprn Requesting Physician: Jamarcus Nolasco M.D. CONSULTATION REPORT REASON FOR CONSULT Status post right VAT and history of pleural effusion and COPD. HISTORY OF PRESENT ILLNESS Mr. Gannon is 66-year-old male seen by us in our office and lately has been seen by my nurse practitioner, Tootie Samayoa. She has ordered thoracentesis. Apparently, the patient has had it four times total. Because of the number of times he required thoracentesis, we are looking for a longer term solution and, therefore, he was referred to Dr. Jamarcus Nolasco. He underwent right VAT with mechanical pleurodesis today. Per patient, he had no increased shortness of air prior to the procedure. He does say though that right before dialysis he does notice some shortness of breath and typically some time after dialysis the shortness of breath improves. He denied chest pain preop. 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 He does have a history of COPD but I do not have PFTs that would back that up. OTHER PAST MEDICAL HISTORY Anemia, end-stage renal disease, hypertension. PAST SURGICAL HISTORY Left eye surgery, fatty tumor surgery. SOCIAL HISTORY He never smoked as mentioned. FAMILY HISTORY Interestingly is positive for 7/10 family members and I think that includes brothers and sisters as well as parents who have had asthma. ALLERGIES No known drug allergies. MEDICATIONS ON ADMISSION 1. Coreg 3.125 mg p.o. b.i.d. 2. Renal vitamins one p.o. every afternoon. 3. Low dose aspirin 81 mg p.o. daily. 4. Amlodipine 5 mg p.o. b.i.d. 5. Losartan 50 mg p.o. every evening. 6. Sertraline 50 mg every evening. 7. Ondansetron 4 mg t.i.d. 8. Hydroxyzine 25 mg p.o. b.i.d. 9. Cyclobenzaprine 5 mg p.o. b.i.d. Unit #: [id number] #: [id number] Patient: DARIEN GANNON 10. Mapap 325 mg t.i.d. SYSTEM REVIEW No nausea, vomiting, diarrhea. He has occasional leg swelling. He has some joint aches. He does have cataracts. He does have fatigue. He has got no skin complaints. He denies any difficulty coping. He has no thyroid issues. He denies headaches. He does complain of history of anemia. He denies seasonal allergies. All other systems are negative except as mentioned. PHYSICAL EXAMINATION GENERAL APPEARANCE: He presents as an older male in no acute distress. VITAL SIGNS: Temperature 97.7. Pulse 53. Respirations 17. Blood pressure 157/56. Saturation is 96% on two liters nasal cannula. NECK: Without adenopathy. LUNGS: Evaluation of his lungs reveals his breathing is not labored. He has good bilateral breath sounds and may be mildly decreased posteriorly. HEART: A little bit bradycardiac. ABDOMEN: Soft, nontender. Bowel sounds are present. EXTREMITIES: Without edema. NEUROLOGIC: He is awake and alert. DIAGNOSTIC STUDIES LABORATORY: His blood gas done at 11:01 on two liters revealed a pH of 7.27, pCO2 62, pO2 113. Serum chemistries: BUN 27, creatinine 4.9. WBC count 3.6, hemoglobin 9.6 and 29, platelets 142,000. IMAGING: Chest x-ray to my exam reveals a right-sided chest tube. He has got a little volume loss on that right side but, otherwise, that right lung is expanded. He has some increased interstitial markings left side in general. I would not call any of this any kind of focal infiltrate. IMPRESSION 1. Recurrent right pleural effusion. The last one was likely transudate with a protein of 2.6 and LDH of 57. Back in March, protein was 2.2, LDH 57 so that was likely transudative also. 2. COPD which is stable and likely a result of passive smoke inhalation. 3. Mild thrombocytopenia. 4. Milk leukopenia. 5. Hypercapnic respiratory failure but he is awake and alert. PLAN I would repeat his blood gas. As I mentioned, he is awake and alert but his pCO2 was 62. He is on a morphine drip but he does have capnography. He may require some BiPAP tonight. Otherwise, I think he is doing fine. Thank you very much for allowing me to participate in the care of this patient. Dictated by... Marina Burris/james TD: 08/28/2016 07:11 JOB #: [id number] Unit #: [id number] #: [id number] Patient: DARIEN GANNON CONSULTATION REPORT Page 1 of 1 X Eric Huston MD X CONSULTATION REPORT
[~2016-08-27 06:37] MED LIST changes: -ACETAMINOPHEN325 MG PO; -LORTAB 5-325 M1 EACH PO; -NILSTAT PO; -OXYCODONE-APAP1 EACH PO; -PROVENTIL INH0.5 ML INH
[2016-08-27 08:56] LABS: BUN/CREATININE RATIO 5.51; CREATININE SERUM 4.9 mg/dL (0.6-1.4); GLOM FILT RATE Estimated 11.6 mL/min (>60); POTASSIUM 4.5 mmol/L (3.5-5.1)
[2016-08-27 11:43] LABS: ARTERIAL BLD GAS O2 SATURATION 96.7 % (90.0-100.0); ARTERIAL BLOOD GAS CARBOXY HB 0.7 %sat (0.0-9.0); ARTERIAL BLOOD GAS MET HB 0.9 %sat (0.0-2.0); ARTERIAL BLOOD GAS pH 7.277 (7.350-7.450)
[2016-08-27 11:44] LABS: ARTERIAL BLOOD GAS ALLEN TEST NORMAL; ARTERIAL BLOOD GAS ART SITE RIGHT BRACHIAL; ARTERIAL BLOOD GAS DELIVERY NASAL CANNULA; ARTERIAL BLOOD GAS PCO2 62.3 mmHg (35.0-45.0); ARTERIAL DRAW? YES
[2016-08-27 18:57] LABS: ARTERIAL BLD GAS O2 SATURATION 96.1 % (90.0-100.0); ARTERIAL BLOOD GAS CARBOXY HB 0.9 %sat (0.0-9.0); ARTERIAL BLOOD GAS HCO3 26.9 mmol/L; ARTERIAL BLOOD GAS MET HB 1.4 %sat (0.0-2.0); ARTERIAL BLOOD GAS pH 7.323 (7.350-7.450)
[2016-08-27 19:00] LABS: ARTERIAL BLOOD GAS ALLEN TEST NORMAL; ARTERIAL BLOOD GAS ART SITE RIGHT RADIAL; ARTERIAL BLOOD GAS DELIVERY NASAL CANNULA; ARTERIAL BLOOD GAS PCO2 51.9 mmHg (35.0-45.0); ARTERIAL DRAW? YES
[2016-08-28 04:26] LABS: BASOPHIL% 0.5 % (0-2.5); EOSINOPHIL# 0.2 X10e3 (0-0.7); EOSINOPHIL% 4.1 % (0.0-7.0); HEMATOCRIT 29.8 % (38.0-50.0); HEMOGLOBIN 9.7 gm/dL (13.0-16.0); LYMPHOCYTE# 0.5 X10e3 (1.0-3.5); LYMPHOCYTE% 8.6 % (17.0-45.0); MEAN CELL VOLUME 99.4 FL (83-96); MEAN CORPUSCULAR HEMOGLOBIN 32.4 PG (28-34); MEAN CORPUSCULAR HGB CONC 32.6 g/dL (30-36); MEAN PLATELET VOLUME 8.6 FL (6.5-11.5); MONOCYTE# 0.5 X10e3 (0-1.0); MONOCYTE% 8.3 % (3.0-12.0); NEUTROPHIL# 4.5 X10e3 (1.5-7.1); NEUTROPHIL% 78.5 % (40-75); PLATELET COUNT 134 X10e3 (140-420); RED CELL DISTRIBUTION WIDTH 14.3 % (11.0-15.5); WHITE BLOOD COUNT 5.7 X10e3 (4.0-10.5)
[2016-08-28 04:27] LABS: DIFF IND NO
[2016-08-28 04:51] LABS: ALBUMIN SERUM 3.6 g/dL (3.5-5.0); BILIRUBIN,TOTAL 0.7 mg/dL (0.2-2.0); BUN/CREATININE RATIO 6.22; CALCIUM SERUM 8.9 mg/dL (8.4-10.2); CREATININE SERUM 6.1 mg/dL (0.6-1.4); GLOM FILT RATE Estimated 8.9 mL/min (>60); PHOSPHOROUS 5.8 mg/dL (2.5-4.6); PROTEIN TOTAL SERUM 6.8 g/dL (6.0-8.3)
[2016-08-28 04:53] LABS: POTASSIUM 5.5 mmol/L (3.5-5.1)
[2016-08-29 05:24] LABS: BASOPHIL% 0.5 % (0-2.5); EOSINOPHIL# 0.1 X10e3 (0-0.7); EOSINOPHIL% 3.8 % (0.0-7.0); HEMATOCRIT 25.4 % (38.0-50.0); HEMOGLOBIN 8.4 gm/dL (13.0-16.0); LYMPHOCYTE# 0.6 X10e3 (1.0-3.5); LYMPHOCYTE% 16.8 % (17.0-45.0); MEAN CELL VOLUME 98.6 FL (83-96); MEAN CORPUSCULAR HEMOGLOBIN 32.6 PG (28-34); MEAN CORPUSCULAR HGB CONC 33.1 g/dL (30-36); MONOCYTE# 0.5 X10e3 (0-1.0); MONOCYTE% 12.7 % (3.0-12.0); NEUTROPHIL# 2.4 X10e3 (1.5-7.1); NEUTROPHIL% 66.2 % (40-75); PLATELET COUNT 114 X10e3 (140-420); RED BLOOD COUNT 2.58 X10e (3.90-5.60); RED CELL DISTRIBUTION WIDTH 14.1 % (11.0-15.5); WHITE BLOOD COUNT 3.6 X10e3 (4.0-10.5)
[2016-08-29 05:37] LABS: DIFF IND NO
[2016-08-29 06:15] LABS: CALCIUM SERUM 8.8 mg/dL (8.4-10.2); CREATININE SERUM 4.4 mg/dL (0.6-1.4); GLOM FILT RATE Estimated 13.2 mL/min (>60); POTASSIUM 4.3 mmol/L (3.5-5.1)
[2016-08-30 05:35] LABS: BASOPHIL% 0.3 % (0-2.5); DIFF IND YES; EOSINOPHIL# 0.1 X10e3 (0-0.7); EOSINOPHIL% 4.1 % (0.0-7.0); HEMATOCRIT 23.3 % (38.0-50.0); HEMOGLOBIN 7.8 gm/dL (13.0-16.0); LYMPHOCYTE# 0.7 X10e3 (1.0-3.5); LYMPHOCYTE% 18.5 % (17.0-45.0); MEAN CELL VOLUME 97.3 FL (83-96); MEAN CORPUSCULAR HEMOGLOBIN 32.6 PG (28-34); MEAN CORPUSCULAR HGB CONC 33.5 g/dL (30-36); MEAN PLATELET VOLUME 8.7 FL (6.5-11.5); MONOCYTE# 0.4 X10e3 (0-1.0); MONOCYTE% 12.1 % (3.0-12.0); NEUTROPHIL# 2.4 X10e3 (1.5-7.1); PLATELET COUNT 110 X10e3 (140-420); RED BLOOD COUNT 2.39 X10e (3.90-5.60); WHITE BLOOD COUNT 3.6 X10e3 (4.0-10.5)
[2016-08-30 06:12] LABS: PLATELET ESTIMATE DECREASED (NORMAL)
[2016-08-30 06:14] LABS: HYPOCHROMIA SL
[2016-08-30 06:34] LABS: ALBUMIN SERUM 2.9 g/dL (3.5-5.0); BILIRUBIN,TOTAL 0.7 mg/dL (0.2-2.0); BUN/CREATININE RATIO 5.83; CALCIUM SERUM 8.8 mg/dL (8.4-10.2); CREATININE SERUM 7.2 mg/dL (0.6-1.4); GLOM FILT RATE Estimated 7.3 mL/min (>60); POTASSIUM 4.6 mmol/L (3.5-5.1); PROTEIN TOTAL SERUM 5.6 g/dL (6.0-8.3)
[2016-09-01 05:39] LABS: HEMATOCRIT 23.2 % (38.0-50.0); HEMOGLOBIN 7.7 gm/dL (13.0-16.0); MEAN CELL VOLUME 97.7 FL (83-96); MEAN CORPUSCULAR HEMOGLOBIN 32.4 PG (28-34); MEAN CORPUSCULAR HGB CONC 33.1 g/dL (30-36); MEAN PLATELET VOLUME 7.8 FL (6.5-11.5); RED BLOOD COUNT 2.37 X10e (3.90-5.60); RED CELL DISTRIBUTION WIDTH 14.2 % (11.0-15.5); WHITE BLOOD COUNT 3.7 X10e3 (4.0-10.5)
[2016-09-01 06:43] LABS: ALBUMIN SERUM 2.8 g/dL (3.5-5.0); BILIRUBIN,TOTAL 0.7 mg/dL (0.2-2.0); BUN/CREATININE RATIO 7.66; CALCIUM SERUM 8.9 mg/dL (8.4-10.2); CREATININE SERUM 7.7 mg/dL (0.6-1.4); GLOM FILT RATE Estimated 6.7 mL/min (>60); POTASSIUM 4.8 mmol/L (3.5-5.1); PROTEIN TOTAL SERUM 5.7 g/dL (6.0-8.3)
[2016-09-01] MEDS ORDERED: OXYCODONE-APAP1 EACH PO (23:44)
[2016-09-02] MEDS ORDERED: PROVENTIL INH0.5 ML INH (00:09)
[2016-09-02 05:37] LABS: HEMATOCRIT 25.3 % (38.0-50.0); HEMOGLOBIN 8.5 gm/dL (13.0-16.0); MEAN CELL VOLUME 96.3 FL (83-96); MEAN CORPUSCULAR HEMOGLOBIN 32.4 PG (28-34); MEAN CORPUSCULAR HGB CONC 33.6 g/dL (30-36); MEAN PLATELET VOLUME 7.9 FL (6.5-11.5); RED BLOOD COUNT 2.62 X10e (3.90-5.60); RED CELL DISTRIBUTION WIDTH 14.8 % (11.0-15.5); WHITE BLOOD COUNT 3.5 X10e3 (4.0-10.5)
[2016-09-03 05:36] LABS: BASOPHIL% 0.7 % (0-2.5); EOSINOPHIL# 0.1 X10e3 (0-0.7); EOSINOPHIL% 4.4 % (0.0-7.0); HEMATOCRIT 27.1 % (38.0-50.0); HEMOGLOBIN 9.1 gm/dL (13.0-16.0); LYMPHOCYTE# 0.8 X10e3 (1.0-3.5); LYMPHOCYTE% 25.5 % (17.0-45.0); MEAN CELL VOLUME 96.2 FL (83-96); MEAN CORPUSCULAR HEMOGLOBIN 32.2 PG (28-34); MEAN CORPUSCULAR HGB CONC 33.5 g/dL (30-36); MEAN PLATELET VOLUME 7.5 FL (6.5-11.5); MONOCYTE# 0.6 X10e3 (0-1.0); NEUTROPHIL# 1.7 X10e3 (1.5-7.1); NEUTROPHIL% 51.4 % (40-75); PLATELET COUNT 156 X10e3 (140-420); RED BLOOD COUNT 2.82 X10e (3.90-5.60); RED CELL DISTRIBUTION WIDTH 14.1 % (11.0-15.5); WHITE BLOOD COUNT 3.3 X10e3 (4.0-10.5)
[2016-09-03 05:49] LABS: DIFF IND NO
[2016-09-03 06:00] LABS: BUN/CREATININE RATIO 7.58; CALCIUM SERUM 9.1 mg/dL (8.4-10.2); CREATININE SERUM 6.2 mg/dL (0.6-1.4); GLOM FILT RATE Estimated 8.7 mL/min (>60); POTASSIUM 4.6 mmol/L (3.5-5.1)
[2016-09-03] MEDS ORDERED: ACETAMINOPHEN325 MG PO (13:21)
[2016-09-03] MEDS ORDERED: NILSTAT PO (13:25)
[2016-09-03] MEDS ORDERED: LORTAB 5-325 M1 EACH PO (13:30)
== END 2016-09-03 14:41 | disposition home or self-care (01) | DRG 163 ==
LOC: CSUR 06:37 → C5C 10:33 → CPACUOF 10:33 → CSUR 10:34 → CPACUOF 15:07 → CICCU2 15:07 → C5C 08-29 17:09
PROVIDERS: Anesthesiology; Internal Medicine Nephrology; Internal Medicine Pulmonary Disease; Surgery
PROC: 0B5N4ZZ Destruction of Right Pleura, Percutaneous Endoscopic Approach (ICD-10-PCS; 2016-08-27)
PROC: 0BBN4ZZ Excision of Right Pleura, Percutaneous Endoscopic Approach (ICD-10-PCS; 2016-08-27 08:30)
PROC: 5A1D60Z (ICD-10-PCS; principal; 2016-08-28)
PROC: 30233N1 Transfusion of Nonautologous Red Blood Cells into Peripheral Vein, Percutaneous Approach (ICD-10-PCS; 2016-09-01)
DX: J90 Pleural effusion, not elsewhere classified (principal); N18.6 End stage renal disease; J96.92 Respiratory failure, unspecified with hypercapnia; I12.0 Hypertensive chronic kidney disease with stage 5 chronic kidney disease or end stage renal disease; D69.6 Thrombocytopenia, unspecified; J44.9 Chronic obstructive pulmonary disease, unspecified; E66.01 Morbid (severe) obesity due to excess calories; D72.819 Decreased white blood cell count, unspecified; J45.909 Unspecified asthma, uncomplicated; G47.33 Obstructive sleep apnea (adult) (pediatric); K21.9 Gastro-esophageal reflux disease without esophagitis; Z99.2 Dependence on renal dialysis; D64.9 Anemia, unspecified; R47.1 Dysarthria and anarthria; Z68.36 Body mass index [BMI] 36.0-36.9, adult
CPT/HCPCS: 36600; 71010; 71020; 80048; 80053; 82803; 83735; 84100; 85025; 85027; 86850; 86900; 86901; 86923; 87070; 87075; 87102; 87116; 87205; 87206; 87340; 88108; 88305; 88331; 94640; 94760; 94761; 97116; 97162; C1781; G8978-GP; G8979-GP; G8980-GP; J0330; J0690; J1170; J1644; J2250; J2270; J2370; J2405; J2550; J2710; J2765; J3010; P9016

== ENCOUNTER → 2016-09-10 | Outpatient (CLI) | payer MEDICARE, BC, OTHER ==
[~2016-09-10] MED LIST changes: +ACETAMINOPHEN325 MG PO; +LORTAB 5-325 M1 EACH PO; +NILSTAT PO; +OXYCODONE-APAP1 EACH PO; +PROVENTIL INH0.5 ML INH
--- NOTE | ~2016-09-10 | CR63 ---
[facility] A Service of [facility] & [facility] RADIOLOGY TEXT RESULTS PATIENT: DARIEN AHUJA LOCATION: [facility] : [birth year] UNIT #: [id number] AGE: [address]: Jamarcus Nolasco MD SEX: M ORDER DR: [id number] [facility] [address] [place], [place] [address] [id number] O MR#: [id number] Acc #: [id number] NAME: DARIEN AHUJA : 1950 SEX: M STUDY DATE/TIME: 09/11/2016 UNIT: [facility] ROOM: STUDY DESCRIPTION: CR Chest 2 View Attending Physician: Jamarcus Nolasco M.D. Referring Physician: Jamarcus Nolasco M.D. Ordering Physician: Jamarcus Nolasco M.D. Primary Care Physician: Josette Fletcher Aprn MEDICAL IMAGING REPORT This report is preliminary unless electronic signature is present EXAM Chest 2 views 09/10/2016 1433 hours. HISTORY 66-year-old man with diagnosis of pleural effusion. Right chest tube removal. Symptoms since 08/27/2016. FINDINGS Upright PA and lateral views of the chest demonstrate stable mild cardiomegaly. Aorta appears more narrow, likely due to less rotation and improved inspiration. There is a hiatal hernia without change. There is minimal blunting of the right costophrenic sulcus and minimal thickening of the pleura that could represent a very small residual pleural effusion. There is no large effusion seen. No pneumothorax. IMPRESSION Minimal thickening of the pleura of the fissures on the right, likely related to a small amount of residual pleural fluid. No significant pleural effusion is seen. There is no left effusion. Stable hiatal hernia. Dictated by... An Lucio M.D. THIS IS AN ELECTRONICALLY VERIFIED REPORT An Lucio M.D. at 09/11/2016 2:31 PM Marcell TD: 09/11/2016 13:01 JOB #: [id number] [facility] A Service of [facility] & [facility] RADIOLOGY TEXT RESULTS PATIENT: DARIEN AHUJA LOCATION: [facility] #: [id number] : [birth year] UNIT #: [id number] AGE: [address]: Jamarcus Nolasco MD SEX: M ORDER DR: MEDICAL IMAGING REPORT Page 1 of 1 COPY
== END | disposition home or self-care (01) ==
LOC: CRAD 14:19
DX: J90 Pleural effusion, not elsewhere classified (principal); K44.9 Diaphragmatic hernia without obstruction or gangrene
CPT/HCPCS: 71020

== ENCOUNTER → 2016-10-22 | Outpatient (CLI) | payer MEDICARE, BC, OTHER ==
--- NOTE | ~2016-10-22 | CR63 ---
[facility] A Service of [facility] & [facility] RADIOLOGY TEXT RESULTS PATIENT: DARIEN AHUJA LOCATION: [facility] : [birth year] UNIT #: [id number] AGE: [address]: Jamarcus Nolasco MD SEX: M ORDER DR: [id number] [facility] [address] [place], [place] [address] [id number] O MR#: [id number] Acc #: [id number] NAME: DARIEN AHUJA : 1950 SEX: M STUDY DATE/TIME: 10/22/2016 12:11 UNIT: [facility] ROOM: STUDY DESCRIPTION: CR Chest 2 View Attending Physician: Jamarcus Nolasco M.D. Referring Physician: Jamarcus Nolasco M.D. Ordering Physician: Jamarcus Nolasco M.D. Primary Care Physician: Josette Fletcher Aprn MEDICAL IMAGING REPORT This report is preliminary unless electronic signature is present EXAM Chest 2 views dated 10/22/2016. COMPARISON Chest 2 views dated 09/10/2016. HISTORY Pleural effusion, shortness of air for 2 months. Status post lung surgery. History of asthma, hypertension, shortness of air. FINDINGS 2 views of the chest were obtained. Redemonstrated is an obliquely linear opacity noted in the region of the right horizontal fissure and adjacent right hilum on the frontal view. It is difficult to correlate it in the lateral view. It is stable since last month. It could be related to pleural thickening/fluid or atelectasis. However, given its indistinct visualization in the lateral view, it could also be extrinsic. It has a nonaggressive benign appearance. Left lung as well aerated. Heart is of normal size. Multilevel contiguous anterior dense osteophytes or ossification of the anterior longitudinal ligament is seen, benign. Dictated by... Deena Abel M.D. THIS IS AN ELECTRONICALLY VERIFIED REPORT Deena Abel M.D. at 10/23/2016 5:24 PM CPR/js TD: 10/22/2016 14:39 JOB #: [id number] MEDICAL IMAGING REPORT [facility] A Service of [facility] & [facility] RADIOLOGY TEXT RESULTS PATIENT: DARIEN AHUJA LOCATION: [facility] #: [id number] : [birth year] UNIT #: [id number] AGE: [address]: Jamarcus Nolasco MD SEX: M ORDER DR: Page 1 of 1 COPY
== END | disposition home or self-care (01) ==
LOC: CRAD 11:43
DX: J90 Pleural effusion, not elsewhere classified (principal)
CPT/HCPCS: 71020